=== PATIENT | male | born 1945 | race Caucasian/White ===

== ENCOUNTER → 2017-08-17 | Outpatient (CLI) | payer OTHER ==
[2017-08-17 10:08] LABS: BLOOD UREA NITROGEN 19 mg/dl (7-18); BUN/CREATININE RATIO 17.1 (10-20); CALCIUM 9.2 mg/dl (8.5-10.1); CARBON DIOXIDE 32 mmol/L (21-32); CHLORIDE 102 mmol/L (98-107); GLUCOSE 87 mg/dl (70-99); POTASSIUM 3.8 mmol/L (3.5-5.1); SODIUM 136 mmol/L (136-145)
[2017-08-17 10:17] LABS: ALKALINE PHOSPHATASE 63 U/L (45-117); ALT/SGPT 29 U/L (12-78); AST/SGOT 17 U/L (15-37); BASO % 0.4 %; BASO ABS # 0.03 K/uL (0-0.2); CHOLESTEROL 188 mg/dl (0-200); COMPLETE YES; EOS % 3.1 %; HDL CHOLESTEROL 62 mg/dl; HEMATOCRIT 49.3 % (42-52); IG% 0.5 %; LDL CHOLESTEROL CALCULATED 106 mg/dl; LYMPH ABS # 1.68 K/uL (1.2-3.4); MEAN CELL VOLUME 92.8 fL (80-100); MEAN CORPUSCULAR HEMOGLOBIN 30.7 pg (25-34); MEAN CORPUSCULAR HGB CONC 33.1 g/dl (32-36); MEAN PLATELET VOLUME 9.7 fL (7.4-10.4); MONO % 6.8 %; NEUT % 66.2 %; PLATELET COUNT 244 K/uL (130-400); RED BLOOD COUNT 5.31 M/uL (4.7-6.1); TRIGLYCERIDES 99 mg/dl (0-150); VERY LOW DENSITY LIPOPROT CALC 20 mg/dl; WHITE BLOOD COUNT 7.32 K/uL (4.8-10.8)
== END | disposition home or self-care (01) ==
LOC: C.LAB1850 08:39
PROVIDERS: ATTEND Internal Medicine
DX: K59.00 Constipation, unspecified (principal); E78.5 Hyperlipidemia, unspecified; N40.0 Benign prostatic hyperplasia without lower urinary tract symptoms; D21.4 Benign neoplasm of connective and other soft tissue of abdomen